=== PATIENT | male | born 1975 | race Caucasian/White ===

== ENCOUNTER 2016-12-22 19:21 | Emergency (ER) | payer MEDICAID, OTHER ==
[2016-12-22 19:56] VITALS: BP 128/62; PULSE 85; RESP 18; TEMP 98; O2SAT 97
--- NOTE | 2016-12-22 20:10 | UCPHY ---
H & P Time Seen by Provider: 12/22/16 20:08 Patient Type: Established HPI/ROS: This patient has a cough for 3 weeks. He describes associated feeling of chest congestion. He also has associated low-grade fevers to 100.8. He has mild nasal congestion ear pressure associated with his symptoms. The latter symptoms started over the past 5 days. He has tried Mucinex without significant improvement. No other exacerbating or alleviating factors are noted. ROS: No high fevers or chills. No myalgias. HEENT: No sore throat. He is tolerating good p.o. intake. No headache. Pulmonary: No pleuritic pain. No respiratory distress. Cardiovascular: No lightheadedness. No calf swelling or leg pain. GI: No vomiting. 7 point ROS is otherwise negative. Past Medical/Surgical History: Otherwise healthy Smoking Status: Never smoked Physical Exam: Physical Exam Vital signs are normal. General: No acute distress HEENT: Nose: Clear discharge bilaterally. No sinus tenderness to percussion. Ears: External canals and tympanic membranes are clear with no erythema or abnormal findings bilaterally. Oropharynx: No erythema or exudates. No dysphonia. No drooling or stridor. Eyes: Pupils equal and react to light. Extraocular motions are intact. Lungs: Mild expiratory wheeze bilaterally. No rales. Mild rhonchi bilaterally. Cardiac: Regular rate and rhythm with no murmur gallop or rub Skin: No rash or pallor. Neuro: Alert with no focal deficits noted. Initial differential diagnosis: Viral bronchitis, bacterial bronchitis, doubt pneumonia Constitutional: Initial Vital Signs Temperature (C) 36.6 C 12/22/16 19:38 Heart Rate 85 12/22/16 19:38 Respiratory Rate 18 12/22/16 19:38 Blood Pressure 128/62 H 12/22/16 19:38 O2 Sat (%) 97 12/22/16 19:38 O2 Delivery Mode Room Air Allergies/Adverse Reactions: No Known Allergies Allergy (Verified 10/14/16 07:17) Home Medications: Medication Instructions Recorded Albuterol Hfa Anes Only [Proair 2 puffs IH Q4 PRN #1 mdi 12/22/16 Hfa Icu (*)] Azithromycin [Zithromax] 250 mg PO DAILY #6 tab 12/22/16 Guaifenesin/Codeine Phosphate 5 - 10 ml PO Q6 PRN #120 ml 12/22/16 [Guaifenesin-Codeine Liquid] MDM/Departure - MDM ED Course/Re-evaluation: I counseled the patient regarding bronchitis. He appears clinically well without significant evidence for lower respiratory infection or other concerning findings. - Depart Disposition: Home, Routine, Self-Care Clinical Impression: Acute bronchitis Qualifiers: Bronchitis organism: unspecified organism Qualified Code(s): J20.9 - Acute bronchitis, unspecified Condition: Good Instructions: Acute Bronchitis (ED) Additional Instructions: Diagnosis: Acute bronchitis Plan: Humidifier Continue guaifenesin Albuterol inhaler with spacer for cough, wheeze or shortness of breath Zithromax antibiotic Guaifenesin with codeine for cough prevents sleep Return for worsening despite treatment plan. Prescriptions: Albuterol Hfa Anes Only [Proair Hfa Icu (*)] 2 puffs IH Q4 PRN #1 mdi PRN Reason: Wheezing Azithromycin [Zithromax] 250 mg PO DAILY #6 tab Guaifenesin/Codeine Phosphate [Guaifenesin-Codeine Liquid] 5 - 10 ml PO Q6 PRN # 120 ml PRN Reason: Cough Referrals: MEIR ORNELAS [Primary Care Provider] - As per Instructions - PQRS PQRS Measurement: NA
== END 2016-12-22 20:21 | disposition home or self-care (01) ==
LOC: CED 19:21
DX: J20.9 Acute bronchitis, unspecified (principal)
CPT/HCPCS: 87400-PO; 99214-PO; G0463-PO